=== PATIENT | male | born 1995 | race American Indian/Alaskan Native ===

== ENCOUNTER 2018-10-18 19:59 | Inpatient (IN) | payer OTHER ==
--- NOTE | 2018-10-18 20:46 | Event Note ---
ED Screening Note ED Screening Note: pt is complaining of muscle cramps abdominal cramping that began last night +nausea, +vomiting, +diarrhea no sick contacts no recent abx denies spoiled foods no PMHx no allergies to meds This initial assessment/diagnostic orders/clinical plan/treatment(s) is/are subject to change based on patients health status, clinical progression and re- assessment by fellow clinical providers in the ED. Further treatment and workup at subsequent clinical providers discretion. Patient/guardian urged not to elope from the ED as their condition may be serious if not clinically assessed and managed. Initial orders include: labs
[2018-10-18] MEDS ORDERED: ZOFRAN ODT PO ONE (20:49)
[2018-10-18] MEDS ORDERED: ZOFRAN ODT ONE (20:52)
[2018-10-18 21:17] LABS: Hematocrit 55.3 % (35.5-45.6); Hemoglobin 19.2 gm/dl (11.8-15.2); Mean Corpuscular HGB Conc 35 % (32-34); Mean Corpuscular Volume 97 fl (84-94); Platelet Count 300 K/mm3 (140-440); Red Cell Distribution Width 13.4 % (13.2-15.2)
[2018-10-18 21:32] LABS: Calcium 11.6 mg/dL (8.4-10.2)
[2018-10-18 22:15] LABS: Basophils % (Manual) 0 % (0.0-1.8); Eosinophils % (Manual) 0 % (0.0-4.3); RBC Morphology Normal; Total Cells Counted 100
[2018-10-18] MEDS ORDERED: MORPHINE IV ONE (22:51)
[2018-10-18] MEDS ORDERED: NACL 0.9% 1000 ML 1,000 ML IV ONE ×2 (22:51)
[2018-10-18] MEDS ORDERED: ATIVAN ONE (23:14)
[2018-10-18] MEDS ORDERED: ATIVAN IV ONE (23:14)
--- NOTE | 2018-10-19 00:22 | Cat Scan Report ---
. CT ABDOMEN AND PELVIS WITHOUT CONTRAST HISTORY: abdominal pain. Acute generalized abdominal pain COMPARISON: None. TECHNIQUE: CT images of the abdomen and pelvis were obtained without administration of intravenous co ntrast. All CT scans at this location are performed using CT dose reduction for ALARA by means of au tomated exposure control. FINDINGS: Lungs/bones: Lung bases are clear. There is no acute osseous abnormality. Abdomen/pelvis: The liver, gallbladder, spleen, pancreas, adrenals, kidneys, and proximal GI tract a ppear unremarkable. The urinary bladder and prostate appear unremarkable. No pelvic free fluid or acute colonic abnormali ty. The appendix is mildly prominent and there is a and appendicolith at the base of the appendix. No significant inflammatory stranding or free fluid. IMPRESSION: 1. Appendix findings as outlined above could represent early appendicitis. Signer Name: Garth Sharma MD Signed: 10/19/2018 12:17 AM Workstation Name: [id number]
[2018-10-19] MEDS ORDERED: NACL 0.9% 1000 ML 1,000 ML IV ONE ×2 (01:11→01:12)
--- NOTE | 2018-10-19 01:52 | Emergency Department Report ---
<JAMES RUGGIERO - Last Filed: 10/19/18 02:22> ED Abdominal Pain HPI - General Chief Complaint: Abdominal Pain Stated Complaint: POSS HERNIA Time Seen by Provider: 10/18/18 20:44 - Related Data Allergies Allergy/AdvReac Type Severity Reaction Status Date / Time No Known Allergies Allergy Unverified 10/18/18 20:32 ED Medical Decision Making - Lab Data Result diagrams: 10/18/18 20:56 10/18/18 20:56 - Medical Decision Making addendum by James Ruggiero M.D. Upon my evaluation of the patient at 2 AM he no longer complains of any abdominal discomfort on physical exam his abdomen is nice and soft and nontender to palpation patient states that his symptoms improved after IV fluids and 2 mg morphine. Chest there reviewed and I spoke with and the patient will be admitted to medical services for treatment of his rhabdomyolysis and acute renal injury and will be followed by surgery. It is felt that the CT is more consistent with an appendicolith and a not appendicitis ED Disposition Clinical Impression: Acute kidney injury, Acute renal failure due to rhabdomyolysis Abdominal pain Qualifiers: Abdominal location: lower abdomen, unspecified Qualified Code(s): R10.30 - L ower abdominal pain, unspecified Disposition: 09 OP ADMIT IP TO THIS HOSP Condition: Stable Referrals: BETTY MUNIZ MD [Primary Care Provider] - 3-5 Days Print Language: SPANISH <BENJAMIN HAQ - Last Filed: 10/19/18 02:34> ED Abdominal Pain HPI - General Source: patient Mode of arrival: Ambulatory Limitations: No Limitations - History of Present Illness Initial Comments: Patient is a 23-year-old [place] male with no past medical history who presents to the ED with complaint of acute onset persistent severe diffuse body aches and pains and some abdominal pain with nausea and vomiting for the last 12 hours but which got worse the last 6 hours. Patient states that he has not been able to eat anything or drink anything. The patient also complains of shortness of breath and mild dry cough. [place] rarely drinks water. Patient also states that he was spraying some chemicals 24 hours ago and suspects that that may have been what caused his pains and discomfort. Patient denies dizziness, chest pain, diarrhea, fever, chills, change in vision, syncope, hematuria, testicular pain, or headache. MD Complaint: abdominal pain, other (nausea and vomiting) -: Sudden, hour(s) (6 hours) Location: diffuse Radiation: none Migration to: no migration Severity: severe Severity scale (0 -10): 7 Quality: cramping, aching Consistency: constant Improves With: nothing Worsens With: vomiting Associated Symptoms: denies other symptoms, nausea, vomiting, chills, anorexia. denies: diarrhea, fever, constipation, dysuria, hematemesis, hematochezia, melena, hematuria, syncope ED Review of Systems ROS: Stated complaint: POSS HERNIA Other details as noted in HPI Constitutional: denies: chills, fever Eyes: denies: eye pain, eye discharge, vision change ENT: denies: ear pain, throat pain Respiratory: cough, shortness of breath. denies: SOB with exertion, SOB at rest, wheezing Cardiovascular: denies: chest pain, palpitations, dyspnea on exertion, edema, syncope Endocrine: no symptoms reported Gastrointestinal: abdominal pain, nausea, vomiting. denies: diarrhea, constipation, hematemesis, hematochezia Genitourinary: denies: urgency, dysuria Musculoskeletal: back pain, arthralgia, myalgia. denies: joint swelling Skin: denies: rash, lesions Neurological: weakness. denies: headache, paresthesias Psychiatric: anxiety. denies: depression Hematological/Lymphatic: denies: easy bleeding, easy bruising ED Past Medical Hx - Past Medical History Previous Medical History?: No - Surgical History Past Surgical History?: No - Social History Smoking Status: Current Every Day Smoker ED Physical Exam - General Limitations: No Limitations General appearance: alert, in no apparent distress - Head Head exam: Present: atraumatic, normocephalic, normal inspection - Eye Eye exam: Present: normal appearance, PERRL, EOMI. Absent: scleral icterus, conjunctival injection Pupils: Present: normal accommodation. Absent: unequal - ENT ENT exam: Present: normal exam, normal orophraynx, mucous membranes moist, TM's normal bilaterally, normal external ear exam - Neck Neck exam: Present: normal inspection, full ROM. Absent: tenderness, meningismus, lymphadenopathy, thyromegaly - Respiratory Respiratory exam: Present: normal lung sounds bilaterally. Absent: respiratory distress, wheezes, rales, chest wall tenderness, accessory muscle use, decreased breath sounds, prolonged expiratory - Cardiovascular Cardiovascular Exam: Present: normal rhythm, tachycardia, normal heart sounds. Absent: systolic murmur, diastolic murmur, rubs, gallop - GI/Abdominal GI/Abdominal exam: Present: soft, tenderness (severely diffuse tenderness, guarding on RLQ area), guarding, normal bowel sounds. Absent: rebound, hyperactive bowel sounds, hypoactive bowel sounds, organomegaly, bruit - Rectal Rectal exam: Present: deferred - Extremities Exam Extremities exam: Present: normal inspection, full ROM, normal capillary refill. Absent: tenderness, joint swelling, calf tenderness - Back Exam Back exam: Present: normal inspection, full ROM. Absent: tenderness, CVA tenderness (R), CVA tenderness (L), muscle spasm, paraspinal tenderness, vertebral tenderness - Neurological Exam Neurological exam: Present: alert, oriented X3, CN II-XII intact, normal gait, reflexes normal - Psychiatric Psychiatric exam: Present: normal affect, normal mood, anxious - Skin Skin exam: Present: warm, dry, intact, normal color. Absent: rash ED Course Vital Signs 10/18/18 20:51 Temperature 98.1 F Pulse Rate 122 H Respiratory 20 Rate Blood Pressure 156/74 O2 Sat by Pulse 99 Oximetry - Reevaluation(s) Reevaluation #1: 10/19/18 01:53 This is a 23-year-old -[place] male with no past medical history presented to the ED with diffuse abdominal pain, nausea, vomiting, diffuse body aches and pains and subjective shortness of breath. In the ED, patient is alert and oriented 3, anxious, cachectic and tachycardic and appears ill. Labs were drawn, and patient was immediately started on normal saline IV fluids. Lab test results were reviewed and showed leukocytosis of 11,300, the urine over 36, creatinine of 4.9, hyperglycemia 153 mg/dL, AST of 90 and ALT of 86, , CK of 3417 and protein of 11.4 and albumin of 6.0. These findings were discussed with the ED attending physician Dr. Ruggiero who agreed with the plan of care and suggested the patient may be having acute rhabdomyolysis. Abdomen pelvis CT scan without contrast was ordered and showed the liver, gallbladder, spleen, pancreas, adrenals, kidneys, and proximal GI tract which appeared unremarkable. The urinary bladder and prostate appear unremarkable. No pelvic free fluid or acute colonic abnormality. The appendix is mildly prominent and there is a and appendicolith at the base of the appendix. No significant inflammatory stranding or free fluid. These findings as outlined could represent early appendicitis. I discussed these findings with the ED attending physician Dr. Ruggiero who advised that they general surgeon medication tech has been paged and the patient also be discussed with the hospitalist physician to admit the patient. I paged Dr. Fernandez, the General Surgeon medication tech who asked to talk to the ED attending Physician, Dr. Ruggiero about the Patient. Dr Ruggiero discussed the patient's findings with the General Surgeon medication tech Dr. Fernandez who agreed to consult on the patient upon admission. Dr. Ruggiero also discussed the patient's case with the Hospitalist physician medication tech Dr. Pinto who admitted the patient to the hospital 10/19/18 02:29 ED Medical Decision Making - Lab Data Result diagrams: 10/18/18 20:56 10/18/18 20:56 - Radiology Data Radiology results: report reviewed, image reviewed interpreted by me: [place] [address] Cat Scan Report Signed Patient: PRISCILA SOTELO MR#: [id number] : 1995 Acct:[id number] Age/Sex: 23 / M ADM Date: 10/18/18 Loc: ED Attending Dr: Ordering Physician: BRIDGETTE ENCARNACION Date of Service: 10/18/18 Procedure(s): CT abdomen pelvis wo con Accession Number(s): [id number] cc: BRIDGETTE ENCARNACION . CT ABDOMEN AND PELVIS WITHOUT CONTRAST HISTORY: abdominal pain. Acute generalized abdominal pain COMPARISON: None. TECHNIQUE: CT images of the abdomen and pelvis were obtained without administration of intravenous contrast. All CT scans at this location are performed using CT dose reduction for ALARA by means of automated exposure control. FINDINGS: Lungs/bones: Lung bases are clear. There is no acute osseous abnormality. Abdomen/pelvis: The liver, gallbladder, spleen, pancreas, adrenals, kidneys, and proximal GI tract appear unremarkable. The urinary bladder and prostate appear unremarkable. No pelvic free fluid or acute colonic abnormality. The appendix is mildly prominent and there is a and appendicolith at the base of the appendix. No significant inflammatory stranding or free fluid. IMPRESSION: 1. Appendix findings as outlined above could represent early appendicitis. Signer Name: Garth Sharma MD Signed: 10/19/2018 12:17 AM Workstation Name: [id number] Transcribed By: JAMILA Dictated By: Garth Sharma MD Electronically Authenticated By: Garth Sharma MD Signed Date/Time: 10/19/18 0017 - Medical Decision Making This is a 23-year-old -[place] male with no past medical history presented to the ED with diffuse abdominal pain, nausea, vomiting, diffuse body aches and pains and subjective shortness of breath. In the ED, patient is alert and oriented 3, anxious, cachectic and tachycardic and appears ill. Labs were drawn, and patient was immediately started on normal saline IV fluids. Lab test results were reviewed and showed leukocytosis of 11,300, the urine over 36, creatinine of 4.9, hyperglycemia 153 mg/dL, AST of 90 and ALT of 86, , CK of 3417 and protein of 11.4 and albumin of 6.0. These findings were discussed with the ED attending physician Dr. Ruggiero who agreed with the plan of care and suggested the patient may be having acute rhabdomyolysis. Abdomen pelvis CT scan without contrast was ordered and showed the liver, gallbladder, spleen, pa ncreas, adrenals, kidneys, and proximal GI tract which appeared unremarkable. The urinary bladder and prostate appear unremarkable. No pelvic free fluid or acute colonic abnormality. The appendix is mildly prominent and there is a and appendicolith at the base of the appendix. No significant inflammatory stranding or free fluid. These findings as outlined could represent early appendicitis. I discussed these findings with the ED attending physician Dr. Ruggiero who advised that they general surgeon medication tech has been paged and the patient also be discussed with the hospitalist physician to admit the patient. I paged Dr. Fernandez, the General Surgeon medication tech who asked to talk to the ED attending Physician, Dr. Ruggiero about the Patient. Dr Ruggiero discussed the patient's findings with the General Surgeon medication tech Dr. Fernandez who agreed to consult on the patient upon admission. Dr. Ruggiero also discussed the patient's case with the Hospitalist physician medication tech Dr. Pinto who admitted the patient to the hospital - Differential Diagnosis abdominal pain; rhabdomyolysis; acute renal injury Critical Care Time: Yes Critical care time in (mins) excluding proc time.: 45 Critical care attestation.: If time is entered above; I have spent that time in minutes in the direct care of this critically ill patient, excluding procedure time. ED Disposition Is pt being admited?: Yes Does the pt Need Aspirin: No Time of Disposition: 02:34
--- NOTE | 2018-10-19 02:17 | XRay Report ---
CHEST 2 VIEWS INDICATION: dyspnea. COMPARISON: None FINDINGS: Support devices: None. Heart: Within normal limits. Lungs/pleura: No acute air space or interstitial disease. No pneumothorax. Additional findings: None. IMPRESSION: 1. No acute findings. Signer Name: Garth Sharma MD Signed: 10/19/2018 2:12 AM Workstation Name: [id number]
[2018-10-19 02:21] LABS: Bilirubin,Urine NEG (Negative); Blood,Urine MOD (Negative); Color,Urine Yellow (Yellow); Mucus,Urine 2+ /HPF; Urobilinogen,Urine < 2.0 mg/dL (<2.0)
[2018-10-19] MEDS ORDERED: TYLENOL PO PRN (04:06)
[2018-10-19] MEDS ORDERED: MORPHINE IV PRN (04:06)
[2018-10-19] MEDS ORDERED: SODIUM CHLORIDE FLUSH SYRINGE 10 ML IV PRN (04:06)
[2018-10-19] MEDS ORDERED: PERCOCET 5/325 PO PRN (04:06)
[2018-10-19] MEDS ORDERED: ZOFRAN IV PRN (04:06)
--- NOTE | 2018-10-19 04:06 | History and Physical Report ---
History of Present Illness Chief complaint: abdominal pain History of present illness: A 23-year-old man with a significant past medical history who has been training and exercising heavily in the heat outside. He's been doing a regimen with her friend. He presents abdominal pain for 1 day. Patient also complains of muscle spasms and muscle cramps and feeling hot and weak all over. Constitutional; no chills, no night sweats, no weight loss, no weight gain, no sweats, no anorexia, no fatigue, no weakness, no malaise, no lethargy Eyes: bilateral: other (no complaint of visual problems.) Ears, nose, mouth and throat: mouth pain, no ear pain, no ear discharge, no decreased hearing, no nose pain, no nasal congestion, no bleeding gums, no dental pain, no dysphagia, no hoarseness, no sore throat Cardiovascular: no orthopnea, no palpitations, no rapid/irregular heart beat, no phlebitis Respiratory: no cough with sputum, no excessive sputum, no hemoptysis, no wheezing, no pleurisy, no pain Gastrointestinal: Admits to abdominal pain, no nausea, no vomiting, no diarrhea, no hematochezia, no loss of appetite Rectal: no pain, no incontinence, no bleeding Musculoskeletal: no neck stiffness, no neck pain, no shooting arm pain, no arm numbness/tingling, no low back pain, no shooting leg pain, no leg numbness/tingling Integumentary: no pruritis, no redness, no sores Neurological: no transient paralysis, no paralysis, no weakness Psychiatric: no memory loss, no change in sleep habits, no disorientation Endocrine: no heat intolerance, no polyphagia Hematologic/Lymphatic: no easy bruising, no easy bleeding Allergic/Immunologic: no allergic rhinitis Past History Past Medical History: No medical history Past Surgical History: No surgical history Social history: no significant social history Family history: no significant family history Medications and Allergies Allergies Allergy/AdvReac Type Severity Reaction Status Date / Time No Known Allergies Allergy Unverified 10/18/18 20:32 Exam - Constitutional Vitals: Temp Pulse Resp BP Pulse Ox 98.1 F 122 H 20 156/74 99 10/18/18 20:51 10/18/18 20:51 10/18/18 20:51 10/18/18 20:51 10/18/18 20:51 General appearance: Present: no acute distress, well-nourished - EENT Eyes: Present: PERRL ENT: hearing intact, clear oral mucosa - Neck Neck: Present: supple, normal ROM - Respiratory Respiratory effort: normal Respiratory: bilateral: CTA - Cardiovascular Heart Sounds: Present: S1 & S2. Absent: rub, click - Extremities Extremities: pulses symmetrical, No edema Peripheral Pulses: within normal limits - Abdominal General gastrointestinal: Present: soft, non-tender, non-distended, normal bowel sounds Male genitourinary: Present: normal - Integumentary Integumentary: Present: clear, warm, dry - Musculoskeletal Musculoskeletal: strength equal bilaterally, other (tenderness to abdominal wall) - Psychiatric Psychiatric: appropriate mood/affect, intact judgment & insight - Neurologic Neurologic: CNII-XII intact, moves all extremities Results - Labs CBC & Chem 7: 10/18/18 20:56 10/18/18 20:56 Labs: Laboratory Last Values WBC 11.3 K/mm3 (4.5-11.0) H 10/18/18 20:56 RBC 5.70 M/mm3 (3.65-5.03) H 10/18/18 20:56 Hgb 19.2 gm/dl (11.8-15.2) H 10/18/18 20:56 Hct 55.3 % (35.5-45.6) H 10/18/18 20:56 MCV 97 fl (84-94) H 10/18/18 20:56 MCH 34 pg (28-32) H 10/18/18 20:56 MCHC 35 % (32-34) H 10/18/18 20:56 RDW 13.4 % (13.2-15.2) 10/18/18 20:56 Plt Count 300 K/mm3 (140-440) 10/18/18 20:56 Add Manual Diff Complete 10/18/18 20:56 Total Counted 100 10/18/18 20:56 Seg Neuts % (Manual) 84.0 % (40.0-70.0) H 10/18/18 20:56 0 % 10/18/18 20:56 9.0 % (13.4-35.0) L 10/18/18 20:56 Reactive Lymphs % (Man) 0 % 10/18/18 20:56 7.0 % (0.0-7.3) 10/18/18 20:56 0 % (0.0-4.3) 10/18/18 20:56 0 % (0.0-1.8) 10/18/18 20:56 0 % 10/18/18 20:56 0 % 10/18/18 20:56 0 % 10/18/18 20:56 0 % 10/18/18 20:56 Nucleated RBC % Not Reportable 10/18/18 20:56 Seg Neutrophils # Man 9.5 K/mm3 (1.8-7.7) H 10/18/18 20:56 Band Neutrophils # 0.0 K/mm3 10/18/18 20:56 1.0 K/mm3 (1.2-5.4) L 10/18/18 20:56 Abs React Lymphs (Man) 0.0 K/mm3 10/18/18 20:56 0.8 K/mm3 (0.0-0.8) 10/18/18 20:56 0.0 K/mm3 (0.0-0.4) 10/18/18 20:56 0.0 K/mm3 (0.0-0.1) 10/18/18 20:56 0.0 K/mm3 10/18/18 20:56 0.0 K/mm3 10/18/18 20:56 0.0 K/mm3 10/18/18 20:56 Blast Cells # 0.0 K/mm3 10/18/18 20:56 WBC Morphology Not Reportable 10/18/18 20:56 Hypersegmented Neuts Not Reportable 10/18/18 20:56 Hyposegmented Neuts Not Reportable 10/18/18 20:56 Hypogranular Neuts Not Reportable 10/18/18 20:56 Not Reportable 10/18/18 20:56 Not Reportable 10/18/18 20:56 Not Reportable 10/18/18 20:56 Not Reportable 10/18/18 20:56 Not Reportable 10/18/18 20:56 Not Reportable 10/18/18 20:56 Not Reportable 10/18/18 20:56 Not Reportable 10/18/18 20:56 Plt Clumps, EDTA Not Reportable 10/18/18 20:56 Not Reportable 10/18/18 20:56 Not Reportable 10/18/18 20:56 Not Reportable 10/18/18 20:56 Plt Morphology Comment Not Reportable 10/18/18 20:56 RBC Morphology Normal 10/18/18 20:56 Dimorphic RBCs Not Reportable 10/18/18 20:56 Not Reportable 10/18/18 20:56 Not Reportable 10/18/18 20:56 Not Reportable 10/18/18 20:56 Not Reportable 10/18/18 20:56 Not Reportable 10/18/18 20:56 Not Reportable 10/18/18 20:56 Not Reportable 10/18/18 20:56 Not Reportable 10/18/18 20:56 Not Reportable 10/18/18 20:56 Not Reportable 10/18/18 20:56 Not Reportable 10/18/18 20:56 Not Reportable 10/18/18 20:56 Not Reportable 10/18/18 20:56 Not Reportable 10/18/18 20:56 Not Reportable 10/18/18 20:56 Not Reportable 10/18/18 20:56 Not Reportable 10/18/18 20:56 Not Reportable 10/18/18 20:56 Not Reportable 10/18/18 20:56 Acanthocytes (Spur) Not Reportable 10/18/18 20:56 Rouleaux Not Reportable 10/18/18 20:56 Not Reportable 10/18/18 20:56 Not Reportable 10/18/18 20:56 Not Reportable 10/18/18 20:56 Not Reportable 10/18/18 20:56 Hem Pathologist Commnt No 10/18/18 20:56 Sodium 137 mmol/L (137-145) 10/18/18 20:56 Potassium 4.1 mmol/L (3.6-5.0) 10/18/18 20:56 Chloride 88.2 mmol/L (98-107) L 10/18/18 20:56 Carbon Dioxide 17 mmol/L (22-30) L 10/18/18 20:56 36 mmol/L 10/18/18 20:56 BUN 36 mg/dL (9-20) H 10/18/18 20:56 4.9 mg/dL (0.8-1.5) H 10/18/18 20:56 Estimated GFR 15 ml/min 10/18/18 20:56 7 % 10/18/18 20:56 Glucose 153 mg/dL (75-100) H 10/18/18 20:56 Calcium 11.6 mg/dL (8.4-10.2) H 10/18/18 20:56 0.70 mg/dL (0.1-1.2) 10/18/18 20:56 AST 90 units/L (5-40) H 10/18/18 20:56 ALT 86 units/L (7-56) H 10/18/18 20:56 75 units/L (35-129) 10/18/18 20:56 3417 units/L (55-170) H 10/18/18 20:56 < 0.010 ng/mL (0.00-0.029) 10/18/18 23:04 11.4 g/dL (6.3-8.2) H 10/18/18 20:56 6.0 g/dL (3.9-5) H 10/18/18 20:56 1.1 % 10/18/18 20:56 43 units/L (13-60) 10/18/18 20:56 Yellow (Yellow) 10/19/18 01:58 Cloudy (Clear) 10/19/18 01:58 5.0 (5.0-7.0) 10/19/18 01:58 Ur Specific [place] 1.017 (1.003-1.030) 10/19/18 01:58 30 mg/dl mg/dL (Negative) 10/19/18 01:58 Neg mg/dL (Negative) 10/19/18 01:58 20 mg/dL (Negative) 10/19/18 01:58 Mod (Negative) 10/19/18 01:58 Neg (Negative) 10/19/18 01:58 Neg (Negative) 10/19/18 01:58 < 2.0 mg/dL (<2.0) 10/19/18 01:58 Ur Leukocyte Esterase Neg (Negative) 10/19/18 01:58 10.0 /HPF (0.0-6.0) H 10/19/18 01:58 8.0 /HPF (0.0-6.0) 10/19/18 01:58 U Epithel Cells (Auto) 1.0 /HPF (0-13.0) 10/19/18 01:58 2+ /HPF 10/19/18 01:58 - Imaging and Cardiology Chest x-ray: image reviewed (no acute findings) CT scan - abdomen: image reviewed (appendicolith, may be early appendicitis) Assessment and Plan Assessment and plan: 23-year-old man who presents to the hospital after exercising strenuously with rhabdomyolysis and acute kidney injury Rhabdomyolysis IV fluids, hydration, keep patient cool, check UDS Acute kidney injury due to vasomotor nephropathy and muscle breakdown products Continue IV fluids, nephrology consult Polycythemia May be falsely elevated due to dehydration, we'll rehydrate the patient and recheck hg Metabolic acidosis Most likely to acute kidney injury , IVF Abnormal UA -Most likely epithelial cells, highly doubt UTI, follow-up urine culture Preventative health counseling performed for 17 minutes DVT prophylaxis; early ambulation
[2018-10-19] MEDS: NACL 0.45% 1000 ML 1,000 ML IV SCH ×3 (06:39→19:11)
--- NOTE | 2018-10-19 10:08 | Consultation ---
History of Present Illness - Reason for Consult Consult date: 10/19/18 acute renal failure Requesting physician: JESUS SAMUELS - History of Present Illness This is 23yo AAM with no significant past medical history, who presented to [facility] ER yesterday with complaints of abdominal pain, muscle spasms and generalized weakness. pt states that he has been training and exercising heavily in the heat outside. In ER labs showed significantly elevated BUN/Cr at 36/4.9mg/dl along with elevated CPK > 3400, Hb >19, total protein 11.4, Ca > 11. Pt was admitted for IVF treatment for TANJA and severe dehydration. Renal consult requested for management of TANJA. Pt denies previous renal disease, no recent chronic NSAIDs use or IV contrast exposure reported. Past History Past Medical History: No medical history Past Surgical History: No surgical history Social history: no significant social history Family history: no significant family history Medications and Allergies Allergies Allergy/AdvReac Type Severity Reaction Status Date / Time No Known Allergies Allergy Unverified 10/18/18 20:32 Active Meds: Active Medications Acetaminophen (Tylenol) 650 mg PO Q4H PRN PRN Reason: Pain MILD(1-3)/Fever >100.5/LIU Sodium Chloride (Nacl 0.45% 1000 Ml) 1,000 mls @ 250 mls/hr IV DIRECT FÁTIMA Last Admin: 10/19/18 06:39 Dose: 250 mls/hr Documented by: Morphine Sulfate (Morphine) 2 mg IV Q4H PRN PRN Reason: Pain, Moderate (4-6) Ondansetron HCl (Zofran) 4 mg IV Q8H PRN PRN Reason: Nausea And Vomiting Oxycodone/Acetaminophen (Percocet 5/325) 1 tab PO Q6H PRN PRN Reason: Pain, Moderate (4-6) Sodium Chloride (Sodium Chloride Flush Syringe 10 Ml) 10 ml IV BID FÁTIMA Sodium Chloride (Sodium Chloride Flush Syringe 10 Ml) 10 ml IV PRN PRN PRN Reason: LINE FLUSH Review of Systems All systems: negative Constitutional: fatigue, weakness, malaise, poor appetite Exam - Vital Signs Vital signs: Vital Signs Temp Pulse Resp BP Pulse Ox 98.1 F 122 H 20 156/74 99 10/18/18 20:51 10/18/18 20:51 10/18/18 20:51 10/18/18 20:51 10/18/18 20:51 - General Appearance General appearance: well-developed, well-nourished, appears stated age EENT: ATNC, PERRL, mucous membranes moist Neck: Present: neck supple Respiratory: Clear to Ascultation Heart: regular, S1S2 Gastrointestinal: Present: normoactive bowel sounds Integumentary: no rash, other (no edema ) Neurologic: no focal deficit, alert and oriented x3, strength 5/5, CN 3-12 intact Psychiatric: mood/affect appropriate, cooperative Results - Lab Results 10/18/18 20:56 10/18/18 20:56 Most recent lab results Calcium 11.6 mg/dL (8.4-10.2) H 10/18/18 20:56 Assessment and Plan - Patient Problems (1) Acute kidney injury Current Visit: Yes Status: Acute Plan to address problem: most likely pre-renal azotemia in the setting of severe dehydration. Mild Rhabdomyolysis may contribute to TANJA. check urine lytes, urine protein/cr ratio. cont aggressive IVF with NS at 250ml/hr. avoid nephrotoxins, NSAIDs, IV contrast. Will monitor lytes/renal parameters closely and make further recommendations. no acute indication for renal replacement therapy (2) Rhabdomyolysis Current Visit: Yes Status: Acute Plan to address problem: mild rhabdo, expect to improve with IV NS (3) Hypercalcemia Current Visit: Yes Status: Acute Plan to address problem: likely secondary to severe dehydration. Alb corrected Ca 10. check PTH. cont IV NS
--- NOTE | 2018-10-19 11:53 | Progress Note ---
Assessment and Plan Assessment and plan: --Acute appendicitis; on CT IV fluids, nothing by mouth status, surgery consult IV antibiotics and supportive care --Acute kidney injury; vasomotor nephropathy IV fluids, closely monitor renal function, avoid nephrotoxins Nephrology consulted, and renal ultrasound --Rhabdomyolysis; probably secondary to strenuous physical activity IV fluids, monitor renal function , urine toxicology --Transaminitis; no history of liver disease Monitor closely, GI consult if needed, hepatitis panel --Possible UTI; on UA Empiric antibiotics, follow cultures, plenty of fluids --Ongoing tobacco use; smoking cessation counseling Nicotine patch as needed --DVT prophylaxis; SCD Lovenox after evaluation by surgery Monitor closely and adjust the management as needed History Interval history: Patient seen and examined medical records reviewed Admitted with abdominal pain CT scan possible appendicitis Surgery has evaluated ruled out appendicitis Patient complains of generalized body pains and weakness Vital signs reviewed Hospitalist Physical - Constitutional Vitals: Temp Pulse Resp BP Pulse Ox 98.4 F 74 18 121/59 99 10/19/18 06:16 10/19/18 06:16 10/19/18 06:16 10/19/18 06:16 10/19/18 06:16 General appearance: Present: no acute distress, well-nourished - EENT Eyes: Present: PERRL, EOM intact - Neck Neck: Present: supple, normal ROM - Respiratory Respiratory effort: normal Respiratory: bilateral: diminished, negative: rales, rhonchi, wheezing - Cardiovascular Rhythm: regular Heart Sounds: Present: S1 & S2 - Extremities Extremities: no ischemia, No edema - Abdominal General gastrointestinal: soft, non-tender, non-distended, distended - Integumentary Integumentary: Present: clear, warm - Psychiatric Psychiatric: appropriate mood/affect, cooperative - Neurologic Neurologic: CNII-XII intact, moves all extremities Results - Labs CBC & Chem 7: 10/18/18 20:56 10/19/18 12:02 Labs: Laboratory Last Values WBC 11.3 K/mm3 (4.5-11.0) H 10/18/18 20:56 RBC 5.70 M/mm3 (3.65-5.03) H 10/18/18 20:56 Hgb 19.2 gm/dl (11.8-15.2) H 10/18/18 20:56 Hct 55.3 % (35.5-45.6) H 10/18/18 20:56 MCV 97 fl (84-94) H 10/18/18 20:56 MCH 34 pg (28-32) H 10/18/18 20:56 MCHC 35 % (32-34) H 10/18/18 20:56 RDW 13.4 % (13.2-15.2) 10/18/18 20:56 Plt Count 300 K/mm3 (140-440) 10/18/18 20:56 Add Manual Diff Complete 10/18/18 20:56 Total Counted 100 10/18/18 20:56 Seg Neuts % (Manual) 84.0 % (40.0-70.0) H 10/18/18 20:56 0 % 10/18/18 20:56 9.0 % (13.4-35.0) L 10/18/18 20:56 Reactive Lymphs % (Man) 0 % 10/18/18 20:56 7.0 % (0.0-7.3) 10/18/18 20:56 0 % (0.0-4.3) 10/18/18 20:56 0 % (0.0-1.8) 10/18/18 20:56 0 % 10/18/18 20:56 0 % 10/18/18 20:56 0 % 10/18/18 20:56 0 % 10/18/18 20:56 Nucleated RBC % Not Reportable 10/18/18 20:56 Seg Neutrophils # Man 9.5 K/mm3 (1.8-7.7) H 10/18/18 20:56 Band Neutrophils # 0.0 K/mm3 10/18/18 20:56 1.0 K/mm3 (1.2-5.4) L 10/18/18 20:56 Abs React Lymphs (Man) 0.0 K/mm3 10/18/18 20:56 0.8 K/mm3 (0.0-0.8) 10/18/18 20:56 0.0 K/mm3 (0.0-0.4) 10/18/18 20:56 0.0 K/mm3 (0.0-0.1) 10/18/18 20:56 0.0 K/mm3 10/18/18 20:56 0.0 K/mm3 10/18/18 20:56 0.0 K/mm3 10/18/18 20:56 Blast Cells # 0.0 K/mm3 10/18/18 20:56 WBC Morphology Not Reportable 10/18/18 20:56 Hypersegmented Neuts Not Reportable 10/18/18 20:56 Hyposegmented Neuts Not Reportable 10/18/18 20:56 Hypogranular Neuts Not Reportable 10/18/18 20:56 Not Reportable 10/18/18 20:56 Not Reportable 10/18/18 20:56 Not Reportable 10/18/18 20:56 Not Reportable 10/18/18 20:56 Not Reportable 10/18/18 20:56 Not Reportable 10/18/18 20:56 Not Reportable 10/18/18 20:56 Not Reportable 10/18/18 20:56 Plt Clumps, EDTA Not Reportable 10/18/18 20:56 Not Reportable 10/18/18 20:56 Not Reportable 10/18/18 20:56 Not Reportable 10/18/18 20:56 Plt Morphology Comment Not Reportable 10/18/18 20:56 RBC Morphology Normal 10/18/18 20:56 Dimorphic RBCs Not Reportable 10/18/18 20:56 Not Reportable 10/18/18 20:56 Not Reportable 10/18/18 20:56 Not Reportable 10/18/18 20:56 Not Reportable 10/18/18 20:56 Not Reportable 10/18/18 20:56 Not Reportable 10/18/18 20:56 Not Reportable 10/18/18 20:56 Not Reportable 10/18/18 20:56 Not Reportable 10/18/18 20:56 Not Reportable 10/18/18 20:56 Not Reportable 10/18/18 20:56 Not Reportable 10/18/18 20:56 Not Reportable 10/18/18 20:56 Not Reportable 10/18/18 20:56 Not Reportable 10/18/18 20:56 Not Reportable 10/18/18 20:56 Not Reportable 10/18/18 20:56 Not Reportable 10/18/18 20:56 Not Reportable 10/18/18 20:56 Acanthocytes (Spur) Not Reportable 10/18/18 20:56 Rouleaux Not Reportable 10/18/18 20:56 Not Reportable 10/18/18 20:56 Not Reportable 10/18/18 20:56 Not Reportable 10/18/18 20:56 Not Reportable 10/18/18 20:56 Hem Pathologist Commnt No 10/18/18 20:56 Sodium 137 mmol/L (137-145) 10/18/18 20:56 Potassium 4.1 mmol/L (3.6-5.0) 10/18/18 20:56 Chloride 88.2 mmol/L (98-107) L 10/18/18 20:56 Carbon Dioxide 17 mmol/L (22-30) L 10/18/18 20:56 36 mmol/L 10/18/18 20:56 BUN 36 mg/dL (9-20) H 10/18/18 20:56 4.9 mg/dL (0.8-1.5) H 10/18/18 20:56 Estimated GFR 15 ml/min 10/18/18 20:56 7 % 10/18/18 20:56 Glucose 153 mg/dL (75-100) H 10/18/18 20:56 Calcium 11.6 mg/dL (8.4-10.2) H 10/18/18 20:56 0.70 mg/dL (0.1-1.2) 10/18/18 20:56 AST 90 units/L (5-40) H 10/18/18 20:56 ALT 86 units/L (7-56) H 10/18/18 20:56 75 units/L (35-129) 10/18/18 20:56 3417 units/L (55-170) H 10/18/18 20:56 < 0.010 ng/mL (0.00-0.029) 10/18/18 23:04 11.4 g/dL (6.3-8.2) H 10/18/18 20:56 6.0 g/dL (3.9-5) H 10/18/18 20:56 1.1 % 10/18/18 20:56 43 units/L (13-60) 10/18/18 20:56 PTH Intact 50.19 pg/mL (15-65) 10/19/18 09:49 Yellow (Yellow) 10/19/18 01:58 Cloudy (Clear) 10/19/18 01:58 5.0 (5.0-7.0) 10/19/18 01:58 Ur Specific [place] 1.017 (1.003-1.030) 10/19/18 01:58 30 mg/dl mg/dL (Negative) 10/19/18 01:58 Neg mg/dL (Negative) 10/19/18 01:58 20 mg/dL (Negative) 10/19/18 01:58 Mod (Negative) 10/19/18 01:58 Neg (Negative) 10/19/18 01:58 Neg (Negative) 10/19/18 01:58 < 2.0 mg/dL (<2.0) 10/19/18 01:58 Ur Leukocyte Esterase Neg (Negative) 10/19/18 01:58 10.0 /HPF (0.0-6.0) H 10/19/18 01:58 8.0 /HPF (0.0-6.0) 10/19/18 01:58 U Epithel Cells (Auto) 1.0 /HPF (0-13.0) 10/19/18 01:58 2+ /HPF 10/19/18 01:58 Active Medications - Current Medications Current Medications: Generic Name Dose Route Start Last Admin Trade Name Freq PRN Reason Stop Dose Admin Acetaminophen 650 mg 10/19/18 04:06 Tylenol PO Q4H PRN Pain MILD(1-3)/Fever >100.5/LIU Sodium Chloride 1,000 mls @ 250 mls/hr 10/19/18 05:00 10/19/18 06:39 Nacl 0.45% 1000 Ml IV 250 mls/hr DIRECT FÁTIMA Administration Piperacillin Sod/Tazobactam Sod 2.25 gm in 50 mls @ 100 mls/hr 10/19/18 14:00 Zosyn/Ns 2.25 Gm/50ml IV Q8HR FÁTIMA Protocol Morphine Sulfate 2 mg 10/19/18 04:06 Morphine IV Q4H PRN Pain, Moderate (4-6) Ondansetron HCl 4 mg 10/19/18 04:06 Zofran IV Q8H PRN Nausea And Vomiting Oxycodone/Acetaminophen 1 tab 10/19/18 04:06 Percocet 5/325 PO Q6H PRN Pain, Moderate (4-6) Sodium Chloride 10 ml 10/19/18 10:00 Sodium Chloride Flush Syringe 10 Ml IV BID FÁTIMA Sodium Chloride 10 ml 10/19/18 04:06 Sodium Chloride Flush Syringe 10 Ml IV PRN PRN LINE FLUSH
[2018-10-19 12:38] LABS: Alanine Aminotransferase 41 units/L (7-56); Albumin 3.7 g/dL (3.9-5); BUN/Creatinine Ratio 14; Blood Urea Nitrogen 17 mg/dL (9-20); Calcium 8.3 mg/dL (8.4-10.2); Hemolysis Index 5
--- NOTE | 2018-10-19 12:57 | Progress Note ---
Assessment and Plan Full consult dictated: healthy 23 y/o male admitted secondary to abd muscle spasms and pain. r/o appendicitiis. feeling much better now. labs and hx consistent with rhabdomyolosis. Abd - muscular abd wall but non tender at present. neg guarding or rebound. reviewed CT with radiologist. appendicolith noted but not signs of inflammatory changes. neg for appendicitis. pt also tacho diet without compl surgically stable will follow prn abdominal pain History of present illness: A 23-year-old man with a significant past medical history who has been training and exercising heavily in the heat outside. He's been doing a regimen with her friend. He presents abdominal pain for 1 day. Patient also complains of muscle spasms and muscle cramps and feeling hot and weak all over. Constitutional; no chills, no night sweats, no weight loss, no weight gain, no sweats, no anorexia, no fatigue, no weakness, no malaise, no lethargy Eyes: bilateral: other (no complaint of visual problems.) Ears, nose, mouth and throat: mouth pain, no ear pain, no ear discharge, no decreased hearing, no nose pain, no nasal congestion, no bleeding gums, no dental pain, no dysphagia, no hoarseness, no sore throat Cardiovascular: no orthopnea, no palpitations, no rapid/irregular heart beat, no phlebitis Respiratory: no cough with sputum, no excessive sputum, no hemoptysis, no w heezing, no pleurisy, no pain Gastrointestinal: Admits to abdominal pain, no nausea, no vomiting, no diarrhea, no hematochezia, no loss of appetite Rectal: no pain, no incontinence, no bleeding Musculoskeletal: no neck stiffness, no neck pain, no shooting arm pain, no arm numbness/tingling, no low back pain, no shooting leg pain, no leg numbness/tingling Integumentary: no pruritis, no redness, no sores Neurological: no transient paralysis, no paralysis, no weakness Psychiatric: no memory loss, no change in sleep habits, no disorientation Endocrine: no heat intolerance, no polyphagia Hematologic/Lymphatic: no easy bruising, no easy bleeding Allergic/Immunologic: no allergic rhinitis Past History Past Medical History: No medical history Past Surgical History: No surgical history Social history: no significant social history Family history: no significant family history Selected Entries 10/19/18 11:52 Temperature 98.1 F Pulse Rate 76 Respiratory 16 Rate Blood Pressure 108/55 Laboratory Tests 10/18/18 10/18/18 10/19/18 20:56 20:56 12:02 WBC 11.3 H Hgb 19.2 H Hct 55.3 H BUN 36 H 17 Creatinine 4.9 H 1.2 D Total Creatine Kinase 4703 H Objective Vital Signs - 12hr 10/19/18 10/19/18 10/19/18 04:25 06:16 11:52 Temperature 98.3 F 98.4 F 98.1 F Pulse Rate 90 74 76 Respiratory 16 18 16 Rate Blood Pressure 121/59 108/55 Blood Pressure 110/64 [Right] O2 Sat by Pulse 99 99 98 Oximetry - Labs 10/18/18 20:56 10/19/18 12:02 Diabetes panel 10/18/18 10/19/18 Range/Units 20:56 12:02 Sodium 137 140 (137-145) mmol/L Potassium 4.1 3.8 (3.6-5.0) mmol/L Chloride 88.2 L 105.8 (98-107) mmol/L Carbon Dioxide 17 L 24 D (22-30) mmol/L BUN 36 H 17 (9-20) mg/dL Creatinine 4.9 H 1.2 D (0.8-1.5) mg/dL Glucose 153 H 92 (75-100) mg/dL Calcium 11.6 H 8.3 L D (8.4-10.2) mg/dL AST 90 H 77 H (5-40) units/L ALT 86 H 41 (7-56) units/L Alkaline Phosphatase 75 42 (35-129) units/L Total Protein 11.4 H 6.7 D (6.3-8.2) g/dL Albumin 6.0 H 3.7 L (3.9-5) g/dL Calcium panel 10/18/18 10/19/18 Range/Units 20:56 12:02 Calcium 11.6 H 8.3 L D (8.4-10.2) mg/dL Albumin 6.0 H 3.7 L (3.9-5) g/dL Pituitary panel 10/18/18 10/19/18 Range/Units 20:56 12:02 Sodium 137 140 (137-145) mmol/L Potassium 4.1 3.8 (3.6-5.0) mmol/L Chloride 88.2 L 105.8 (98-107) mmol/L Carbon Dioxide 17 L 24 D (22-30) mmol/L BUN 36 H 17 (9-20) mg/dL Creatinine 4.9 H 1.2 D (0.8-1.5) mg/dL Glucose 153 H 92 (75-100) mg/dL Calcium 11.6 H 8.3 L D (8.4-10.2) mg/dL Adrenal panel 10/18/18 10/19/18 Range/Units 20:56 12:02 Sodium 137 140 (137-145) mmol/L Potassium 4.1 3.8 (3.6-5.0) mmol/L Chloride 88.2 L 105.8 (98-107) mmol/L Carbon Dioxide 17 L 24 D (22-30) mmol/L BUN 36 H 17 (9-20) mg/dL Creatinine 4.9 H 1.2 D (0.8-1.5) mg/dL Glucose 153 H 92 (75-100) mg/dL Calcium 11.6 H 8.3 L D (8.4-10.2) mg/dL Total Bilirubin 0.70 0.60 (0.1-1.2) mg/dL AST 90 H 77 H (5-40) units/L ALT 86 H 41 (7-56) units/L Alkaline Phosphatase 75 42 (35-129) units/L Total Protein 11.4 H 6.7 D (6.3-8.2) g/dL Albumin 6.0 H 3.7 L (3.9-5) g/dL
[2018-10-19] MEDS: ZOSYN/NS 2.25 GM/50ML 2.25 GM/50 ML BAG IV SCH ×2 (14:51→21:30)
[2018-10-19] MEDS: SODIUM CHLORIDE FLUSH SYRINGE 10 ML IV SCH ×2 (14:52→21:30)
[2018-10-20] MEDS: NACL 0.45% 1000 ML 1,000 ML IV SCH ×4 (01:00→18:15)
--- NOTE | 2018-10-20 03:18 | Consultation ---
REASON FOR CONSULTATION: Abdominal pain, rule out appendicitis. HISTORY OF PRESENT ILLNESS: The patient is a healthy 23-year-old white gentleman who was admitted through the Emergency Room with recent onset of abdominal muscle spasms and pain. The patient does state that he is feeling " Also, tolerating a diet without incident. No evidence of nausea or vomiting. Lab work, however, is consistent with rhabdomyolysis. The patient states that he had been working out extensively over the last few days in the heat when he began experiencing muscle cramps throughout his body. PAST MEDICAL HISTORY: Negative. PAST SURGICAL HISTORY: Negative. ALLERGIES: No known allergies. MEDICATIONS: No medications. FAMILY HISTORY: Negative. SOCIAL HISTORY: Quit smoking approximately 5 months ago and occasional ethanol intake. PHYSICAL EXAMINATION: GENERAL: At this time reveals the patient to be awake, alert, cooperative, in no acute distress. As mentioned previously, he states he is feeling better. VITAL SIGNS: Temperature is 98, blood pressure 108/55, pulse is 76, and respirations 16. ABDOMEN: Examination of the abdomen reveals him to be a muscular but there is no real tenderness, rebound or guarding that can be elicited. Bowel sounds are present. No right lower quadrant tenderness is noted. LABORATORY DATA: Lab work at present includes a CBC, which shows a white count of 11.3, H and H is 19.2 and 55.3. Electrolytes are essentially within normal limits. Potassium is 4.1. On admission, BUN was 36 and creatinine was 4.9. Currently, BUN is 17 and creatinine is back down to 1.2. The total creatine kinase was very elevated at 3417, and currently, it is higher at 4703. A CT scan of the abdomen was performed, which I have reviewed with the radiologist. Appendicolith is noted at the tip, but there is no evidence of any inflammatory changes around the appendix itself. IMPRESSION: 1. At this time is that of a healthy 23-year-old young man, rule out rhabdomyolysis. 2. No surgical or radiographic signs of appendicitis at this time. The patient is surgically stable at present. RECOMMENDATIONS: I would recommend to continue his p.o. diet and continue treating his rhabdomyolysis. Possible Nephrology evaluation. I will follow p.r.n. I thank you very much for consultation. JOB# [id number] FP/NTS
[2018-10-20] MEDS: ZOSYN/NS 2.25 GM/50ML 2.25 GM/50 ML BAG IV SCH (06:03)
[2018-10-20 06:25] LABS: Creatinine,Urine 55.7 mg/dL (0.1-20.0)
[2018-10-20 06:26] LABS: Amphetamine Screen,Urine PRESUMPTIVE NEGATIVE; Benzodiazepines Screen,Urine PRESUMPTIVE NEGATIVE; Cocaine Screen,Urine PRESUMPTIVE NEGATIVE; Methadone Screen,Urine PRESUMPTIVE NEGATIVE; Opiate Screen,Urine PRESUMPTIVE NEGATIVE
[2018-10-20 06:46] LABS: Cannabinoid Screen,Urine PRESUMPTIVE POSITIVE
[2018-10-20 07:51] LABS: Alanine Aminotransferase 42 units/L (7-56); Albumin 3.5 g/dL (3.9-5); BUN/Creatinine Ratio 11; Blood Urea Nitrogen 9 mg/dL (9-20); Calcium 8.5 mg/dL (8.4-10.2); Hemolysis Index 1
[2018-10-20] MEDS: SODIUM CHLORIDE FLUSH SYRINGE 10 ML IV SCH ×2 (11:19→22:21)
[2018-10-20] MEDS: ZOSYN/NS 4.5GM/100ML 4.5 GM/100 ML VIAL IV SCH ×2 (16:41→22:20)
--- NOTE | 2018-10-20 17:06 | Progress Note ---
Assessment and Plan - Patient Problems (1) Acute kidney injury Current Visit: Yes Status: Acute Plan to address problem: most likely pre-renal azotemia in the setting of severe dehydration. Mild Rhabdomyolysis may contribute to TANJA. Renal function normalized with IVF. avoid nephrotoxins, NSAIDs, IV contrast. Will monitor lytes/renal parameters closely and make further recommendations. If CPK starts to trend down pt can be discharged from renal stand point. (2) Rhabdomyolysis Current Visit: Yes Status: Acute Plan to address problem: mild rhabdo, expect to improve with IV NS (3) Hypercalcemia Current Visit: Yes Status: Acute Plan to address problem: likely secondary to severe dehydration. normalized with IV hydration Subjective Date of service: 10/20/18 Principal diagnosis: TANJA Interval history: Pt awake alert, in NAD, feeling much better on IVF Objective - Vital Signs Vital signs: Vital Signs - 12hr 10/20/18 10/20/18 10/20/18 05:22 10:00 11:36 Temperature 97.7 F Pulse Rate 63 54 L Respiratory 16 20 Rate Blood Pressure 113/51 O2 Sat by Pulse 100 98 Oximetry 10/20/18 11:38 Temperature 98.1 F Pulse Rate Respiratory 19 Rate Blood Pressure 124/66 O2 Sat by Pulse Oximetry - General Appearance General appearance: well-developed, well-nourished, appears stated age EENT: ATNC, PERRL, mucous membranes moist Neck: no JVD Respiratory: Present: Clear to Ascultation Cardiology: regular, S1S2 Gastrointestinal: normoactive bowel sounds Integumentary: no rash, other (no edema ) Neurologic: no focal deficit, alert and oriented x3, strength 5/5, CN 3-12 intact Psychiatric: mood/affect appropriate, cooperative - Lab 10/18/18 20:56 10/20/18 06:41 Most recent lab results Calcium 8.5 mg/dL (8.4-10.2) 10/20/18 06:41 55.7 mg/dL (0.1-20.0) H 10/20/18 06:00 57 mmol/L 10/20/18 06:00 6 mg/dL (5-11.8) 10/20/18 06:00 Medications & Allergies - Medications Allergies/Adverse Reactions: Allergies No Known Allergies Allergy (Unverified 10/18/18 20:32) Active Medications: Generic Name Dose Route Start Last Admin Trade Name Ronnieq PRN Reason Stop Dose Admin Acetaminophen 650 mg 10/19/18 04:06 Tylenol PO Q4H PRN Pain MILD(1-3)/Fever >100.5/LIU Sodium Chloride 1,000 mls @ 250 mls/hr 10/19/18 05:00 10/20/18 11:19 Nacl 0.45% 1000 Ml IV 250 mls/hr DIRECT FÁTIMA Administration Piperacillin Sod/Tazobactam Sod 4.5 gm in 100 mls @ 200 mls/hr 10/20/18 14:00 10/20/18 16:41 Zosyn/Ns 4.5gm/100ml IV 200 mls/hr Q8HR FÁTIMA Administration Morphine Sulfate 2 mg 10/19/18 04:06 Morphine IV Q4H PRN Pain, Moderate (4-6) Ondansetron HCl 4 mg 10/19/18 04:06 Zofran IV Q8H PRN Nausea And Vomiting Oxycodone/Acetaminophen 1 tab 10/19/18 04:06 Percocet 5/325 PO Q6H PRN Pain, Moderate (4-6) Sodium Chloride 10 ml 10/19/18 10:00 10/20/18 11:19 Sodium Chloride Flush Syringe 10 Ml IV 10 ml BID FÁTIMA Administration Sodium Chloride 10 ml 10/19/18 04:06 Sodium Chloride Flush Syringe 10 Ml IV PRN PRN LINE FLUSH
--- NOTE | 2018-10-20 19:13 | Progress Note ---
Assessment and Plan Assessment and plan: --Acute appendicitis; on CT Surgery evaluated the patient, no acute appendicitis Appendicitis ruled out --Acute kidney injury; vasomotor nephropathy; resolved IV fluids, closely monitor renal function, avoid nephrotoxins Nephrology following --Rhabdomyolysis; probably secondary to strenuous physical activity CK levels Trending down CK today 4032, vigorous IV hydration Input and output monitoring --Transaminitis; no history of liver disease, probably alcohol related Transaminases trending down --Possible UTI; on UA Empiric antibiotics, follow cultures, plenty of fluids --Ongoing tobacco use; smoking cessation counseling Nicotine patch as needed --Recreational drug use; patient advised to quit marijuana --DVT prophylaxis; SCD Lovenox Disposition; follow CK levels, if less than 2000 Patient may be discharged home Plan of care reviewed with the patient and the mother at the bedside History Interval history: Patient seen and examined medical records reviewed No new Events reported by the nursing, patient has no new complaints Patient feels better renal function back to normal range Alert awake oriented 3 Vital signs noted Hospitalist Physical - Constitutional Vitals: Temp Pulse Resp BP Pulse Ox 98.1 F 54 L 19 124/66 98 10/20/18 11:38 10/20/18 11:36 10/20/18 11:38 10/20/18 11:38 10/20/18 11:36 General appearance: Present: no acute distress, well-nourished - EENT Eyes: Present: PERRL, EOM intact - Neck Neck: Present: supple, normal ROM - Respiratory Respiratory effort: normal Respiratory: bilateral: diminished, negative: rales, rhonchi, wheezing - Cardiovascular Rhythm: regular Heart Sounds: Present: S1 & S2 - Extremities Extremities: no ischemia, No edema - Abdominal General gastrointestinal: soft, non-tender, non-distended, normal bowel sounds - Integumentary Integumentary: Present: clear, warm - Psychiatric Psychiatric: appropriate mood/affect, cooperative - Neurologic Neurologic: CNII-XII intact, moves all extremities Results - Labs CBC & Chem 7: 10/18/18 20:56 10/20/18 06:41 Labs: Laboratory Last Values WBC 11.3 K/mm3 (4.5-11.0) H 10/18/18 20:56 RBC 5.70 M/mm3 (3.65-5.03) H 10/18/18 20:56 Hgb 19.2 gm/dl (11.8-15.2) H 10/18/18 20:56 Hct 55.3 % (35.5-45.6) H 10/18/18 20:56 MCV 97 fl (84-94) H 10/18/18 20:56 MCH 34 pg (28-32) H 10/18/18 20:56 MCHC 35 % (32-34) H 10/18/18 20:56 RDW 13.4 % (13.2-15.2) 10/18/18 20:56 Plt Count 300 K/mm3 (140-440) 10/18/18 20:56 Add Manual Diff Complete 10/18/18 20:56 Total Counted 100 10/18/18 20:56 Seg Neuts % (Manual) 84.0 % (40.0-70.0) H 10/18/18 20:56 0 % 10/18/18 20:56 9.0 % (13.4-35.0) L 10/18/18 20:56 Reactive Lymphs % (Man) 0 % 10/18/18 20:56 7.0 % (0.0-7.3) 10/18/18 20:56 0 % (0.0-4.3) 10/18/18 20:56 0 % (0.0-1.8) 10/18/18 20:56 0 % 10/18/18 20:56 0 % 10/18/18 20:56 0 % 10/18/18 20:56 0 % 10/18/18 20:56 Nucleated RBC % Not Reportable 10/18/18 20:56 Seg Neutrophils # Man 9.5 K/mm3 (1.8-7.7) H 10/18/18 20:56 Band Neutrophils # 0.0 K/mm3 10/18/18 20:56 1.0 K/mm3 (1.2-5.4) L 10/18/18 20:56 Abs React Lymphs (Man) 0.0 K/mm3 10/18/18 20:56 0.8 K/mm3 (0.0-0.8) 10/18/18 20:56 0.0 K/mm3 (0.0-0.4) 10/18/18 20:56 0.0 K/mm3 (0.0-0.1) 10/18/18 20:56 0.0 K/mm3 10/18/18 20:56 0.0 K/mm3 10/18/18 20:56 0.0 K/mm3 10/18/18 20:56 Blast Cells # 0.0 K/mm3 10/18/18 20:56 WBC Morphology Not Reportable 10/18/18 20:56 Hypersegmented Neuts Not Reportable 10/18/18 20:56 Hyposegmented Neuts Not Reportable 10/18/18 20:56 Hypogranular Neuts Not Reportable 10/18/18 20:56 Not Reportable 10/18/18 20:56 Not Reportable 10/18/18 20:56 Not Reportable 10/18/18 20:56 Not Reportable 10/18/18 20:56 Not Reportable 10/18/18 20:56 Not Reportable 10/18/18 20:56 Not Reportable 10/18/18 20:56 Not Reportable 10/18/18 20:56 Plt Clumps, EDTA Not Reportable 10/18/18 20:56 Not Reportable 10/18/18 20:56 Not Reportable 10/18/18 20:56 Not Reportable 10/18/18 20:56 Plt Morphology Comment Not Reportable 10/18/18 20:56 RBC Morphology Normal 10/18/18 20:56 Dimorphic RBCs Not Reportable 10/18/18 20:56 Not Reportable 10/18/18 20:56 Not Reportable 10/18/18 20:56 Not Reportable 10/18/18 20:56 Not Reportable 10/18/18 20:56 Not Reportable 10/18/18 20:56 Not Reportable 10/18/18 20:56 Not Reportable 10/18/18 20:56 Not Reportable 10/18/18 20:56 Not Reportable 10/18/18 20:56 Not Reportable 10/18/18 20:56 Not Reportable 10/18/18 20:56 Not Reportable 10/18/18 20:56 Not Reportable 10/18/18 20:56 Not Reportable 10/18/18 20:56 Not Reportable 10/18/18 20:56 Not Reportable 10/18/18 20:56 Not Reportable 10/18/18 20:56 Not Reportable 10/18/18 20:56 Not Reportable 10/18/18 20:56 Acanthocytes (Spur) Not Reportable 10/18/18 20:56 Rouleaux Not Reportable 10/18/18 20:56 Not Reportable 10/18/18 20:56 Not Reportable 10/18/18 20:56 Not Reportable 10/18/18 20:56 Not Reportable 10/18/18 20:56 Hem Pathologist Commnt No 10/18/18 20:56 Sodium 139 mmol/L (137-145) 10/20/18 06:41 Potassium 3.9 mmol/L (3.6-5.0) 10/20/18 06:41 Chloride 105.3 mmol/L (98-107) 10/20/18 06:41 Carbon Dioxide 26 mmol/L (22-30) 10/20/18 06:41 12 mmol/L 10/20/18 06:41 BUN 9 mg/dL (9-20) 10/20/18 06:41 0.8 mg/dL (0.8-1.5) 10/20/18 06:41 Estimated GFR > 60 ml/min 10/20/18 06:41 11 % 10/20/18 06:41 Glucose 83 mg/dL (75-100) 10/20/18 06:41 Calcium 8.5 mg/dL (8.4-10.2) 10/20/18 06:41 0.80 mg/dL (0.1-1.2) 10/20/18 06:41 AST 83 units/L (5-40) H 10/20/18 06:41 ALT 42 units/L (7-56) 10/20/18 06:41 40 units/L (35-129) 10/20/18 06:41 4032 units/L (55-170) H 10/20/18 06:41 < 0.010 ng/mL (0.00-0.029) 10/18/18 23:04 6.3 g/dL (6.3-8.2) 10/20/18 06:41 3.5 g/dL (3.9-5) L 10/20/18 06:41 1.3 % 10/20/18 06:41 43 units/L (13-60) 10/18/18 20:56 PTH Intact 50.19 pg/mL (15-65) 10/19/18 09:49 Yellow (Yellow) 10/19/18 01:58 Cloudy (Clear) 10/19/18 01:58 5.0 (5.0-7.0) 10/19/18 01:58 Ur Specific [place] 1.017 (1.003-1.030) 10/19/18 01:58 30 mg/dl mg/dL (Negative) 10/19/18 01:58 Neg mg/dL (Negative) 10/19/18 01:58 20 mg/dL (Negative) 10/19/18 01:58 Mod (Negative) 10/19/18 01:58 Neg (Negative) 10/19/18 01:58 Neg (Negative) 10/19/18 01:58 < 2.0 mg/dL (<2.0) 10/19/18 01:58 Ur Leukocyte Esterase Neg (Negative) 10/19/18 01:58 10.0 /HPF (0.0-6.0) H 10/19/18 01:58 8.0 /HPF (0.0-6.0) 10/19/18 01:58 U Epithel Cells (Auto) 1.0 /HPF (0-13.0) 10/19/18 01:58 2+ /HPF 10/19/18 01:58 55.7 mg/dL (0.1-20.0) H 10/20/18 06:00 57 mmol/L 10/20/18 06:00 6 mg/dL (5-11.8) 10/20/18 06:00 Presumptive negative 10/20/18 06:00 Presumptive negative 10/20/18 06:00 Ur Barbiturates Screen Presumptive negative 10/20/18 06:00 Ur Phencyclidine Scrn Presumptive negative 10/20/18 06:00 Ur Amphetamines Screen Presumptive negative 10/20/18 06:00 U Benzodiazepines Scrn Presumptive negative 10/20/18 06:00 Presumptive negative 10/20/18 06:00 U Marijuana (THC) Screen Presumptive positive 10/20/18 06:00 Disclamer 10/20/18 06:00 Active Medications - Current Medications Current Medications: Generic Name Dose Route Start Last Admin Trade Name Freq PRN Reason Stop Dose Admin Acetaminophen 650 mg 10/19/18 04:06 Tylenol PO Q4H PRN Pain MILD(1-3)/Fever >100.5/LIU Sodium Chloride 1,000 mls @ 250 mls/hr 10/19/18 05:00 10/20/18 18:15 Nacl 0.45% 1000 Ml IV 250 mls/hr DIRECT FÁTIMA Administration Piperacillin Sod/Tazobactam Sod 4.5 gm in 100 mls @ 200 mls/hr 10/20/18 14:00 10/20/18 16:41 Zosyn/Ns 4.5gm/100ml IV 200 mls/hr Q8HR FÁTIMA Administration Morphine Sulfate 2 mg 10/19/18 04:06 Morphine IV Q4H PRN Pain, Moderate (4-6) Ondansetron HCl 4 mg 10/19/18 04:06 Zofran IV Q8H PRN Nausea And Vomiting Oxycodone/Acetaminophen 1 tab 10/19/18 04:06 Percocet 5/325 PO Q6H PRN Pain, Moderate (4-6) Sodium Chloride 10 ml 10/19/18 10:00 10/20/18 11:19 Sodium Chloride Flush Syringe 10 Ml IV 10 ml BID FÁTIMA Administration Sodium Chloride 10 ml 10/19/18 04:06 Sodium Chloride Flush Syringe 10 Ml IV PRN PRN LINE FLUSH
[2018-10-21] MEDS: ZOSYN/NS 4.5GM/100ML 4.5 GM/100 ML VIAL IV SCH ×2 (06:05→14:02)
[2018-10-21 06:28] VITALS: BP 113/65
[2018-10-21 07:13] LABS: Alanine Aminotransferase 41 units/L (7-56); Albumin 3.5 g/dL (3.9-5); BUN/Creatinine Ratio 8; Blood Urea Nitrogen 6 mg/dL (9-20); Calcium 8.8 mg/dL (8.4-10.2); Hemolysis Index 57
[2018-10-21] MEDS: SODIUM CHLORIDE FLUSH SYRINGE 10 ML IV SCH (10:20)
--- NOTE | 2018-10-21 12:59 | Discharge Summary ---
Providers - Providers Date of Admission: 10/19/18 04:06 Date of discharge: 10/21/18 Attending physician: NIELS SHI 10/19/18 04:06 Consult to Physician [CONS] Routine Comment: Consulting Provider: SILVESTRE ALVAREZ Physician Instructions: Reason For Exam: elisa 10/19/18 11:39 Consult to Physician [CONS] Routine Comment: Consulting Provider: NHUNG GARRETT Physician Instructions: Reason For Exam: ? acute appendicitis Primary care physician: BETTY MUNIZ Hospitalization Condition: Stable Hospital course: 23-year-old male patient with no significant past medical history was training and exercising vigorously and was admitted through emergency room with abdominal pain generalized body pain and muscle cramps, initial workup is consistent with rhabdomyolysis and acute kidney injury, transaminitis and questionable appendicitis on CT abdomen, evaluated by surgery no evidence of appendicitis, appendicitis ruled out, managed symptomatically with vigorous IV hydration, renal function improved Transaminases trending down has rhabdomyolysis with CK of >4000,on IV hydration Discharge diagnosis: --Acute appendicitis; on CT Surgery evaluated the patient, no acute appendicitis Appendicitis ruled out --Acute kidney injury; vasomotor nephropathy; resolved IV fluids, closely monitor renal function, avoid nephrotoxins Nephrology following --Rhabdomyolysis; probably secondary to strenuous physical activity CK levels Trending down CK today 4032, vigorous IV hydration Input and output monitoring --Transaminitis; no history of liver disease, probably alcohol related Transaminases trending down --Possible UTI; on UA Empiric antibiotics, follow cultures, plenty of fluids --Ongoing tobacco use; smoking cessation counseling Nicotine patch as needed --Recreational drug use; patient advised to quit marijuana --DVT prophylaxis; SCD Lovenox Disposition; follow CK levels, if less than 2000 Patient may be discharged home Plan of care reviewed with the patient and the mother at the bedside Hospitalist Physical General appearance: Present: no acute distress, well-nourished - EENT Eyes: Present: PERRL, EOM intact - Neck Neck: Present: supple, normal ROM - Respiratory Respiratory effort: normal Respiratory: bilateral: diminished, negative: rales, rhonchi, wheezing - Cardiovascular Rhythm: regular Heart Sounds: Present: S1 & S2 - Extremities Extremities: no ischemia, No edema - Abdominal General gastrointestinal: soft, non-tender, non-distended, normal bowel sounds - Integumentary Integumentary: Present: clear, warm - Psychiatric Psychiatric: appropriate mood/affect, cooperative - Neurologic Neurologic: CNII-XII intact, moves all extremities Disposition: DC-01 TO HOME OR SELFCARE Time spent for discharge: 34 minutes Core Measure Documentation - Palliative Care Palliative Care/ Comfort Measures: Not Applicable - Core Measures Any of the following diagnoses?: none Exam - Constitutional Vitals: Temp Pulse Resp BP Pulse Ox 97.9 F 49 L 16 113/65 97 10/21/18 05:33 10/21/18 05:33 10/21/18 05:33 10/21/18 05:33 10/21/18 05:33 Plan Activity: advance as tolerated Weight Bearing Status: Non-Weight Bearing Diet: regular Special Instructions: other (Keep yourself hydrated, no strenious exercise ) Follow up with: BETTY MUNIZ MD [Primary Care Provider] - 3-5 Days
--- NOTE | 2018-10-21 13:25 | Progress Note ---
Assessment and Plan - Patient Problems (1) Acute kidney injury Current Visit: Yes Status: Acute Plan to address problem: most likely pre-renal azotemia in the setting of severe dehydration. Mild Rhabdomyolysis may contribute to TANJA. Renal function normalized with IVF. avoid nephrotoxins, NSAIDs, IV contrast. Will monitor lytes/renal parameters closely and make further recommendations. stable for discharge from renal stand point (2) Rhabdomyolysis Current Visit: Yes Status: Acute Plan to address problem: mild rhabdo, expect to improve with IV NS (3) Hypercalcemia Current Visit: Yes Status: Acute Plan to address problem: likely secondary to severe dehydration. normalized with IV hydration Subjective Date of service: 10/21/18 Principal diagnosis: TANJA Interval history: Pt awake alert, in NAD, renal function normalized after IVF Objective - Vital Signs Vital signs: Vital Signs - 12hr 10/21/18 05:33 Temperature 97.9 F Pulse Rate 49 L Respiratory 16 Rate Blood Pressure 113/65 O2 Sat by Pulse 97 Oximetry - General Appearance General appearance: well-developed, well-nourished, appears stated age EENT: ATNC, PERRL, mucous membranes moist Neck: no JVD Respiratory: Present: Clear to Ascultation Cardiology: regular, S1S2 Gastrointestinal: normoactive bowel sounds Integumentary: no rash, other (no edema ) Neurologic: no focal deficit, alert and oriented x3, strength 5/5, CN 3-12 intact Psychiatric: mood/affect appropriate, cooperative - Lab 10/18/18 20:56 10/21/18 06:36 Most recent lab results Calcium 8.8 mg/dL (8.4-10.2) 10/21/18 06:36 55.7 mg/dL (0.1-20.0) H 10/20/18 06:00 57 mmol/L 10/20/18 06:00 6 mg/dL (5-11.8) 10/20/18 06:00 Medications & Allergies - Medications Allergies/Adverse Reactions: Allergies No Known Allergies Allergy (Unverified 10/18/18 20:32) Active Medications: Generic Name Dose Route Start Last Admin Trade Name Freq PRN Reason Stop Dose Admin Acetaminophen 650 mg 10/19/18 04:06 Tylenol PO Q4H PRN Pain MILD(1-3)/Fever >100.5/LIU Sodium Chloride 1,000 mls @ 150 mls/hr 10/19/18 05:00 10/20/18 18:15 Nacl 0.45% 1000 Ml IV 250 mls/hr DIRECT FÁTIMA Administration Piperacillin Sod/Tazobactam Sod 4.5 gm in 100 mls @ 200 mls/hr 10/20/18 14:00 10/21/18 06:05 Zosyn/Ns 4.5gm/100ml IV 200 mls/hr Q8HR FÁTIMA Administration Morphine Sulfate 2 mg 10/19/18 04:06 Morphine IV Q4H PRN Pain, Moderate (4-6) Ondansetron HCl 4 mg 10/19/18 04:06 Zofran IV Q8H PRN Nausea And Vomiting Oxycodone/Acetaminophen 1 tab 10/19/18 04:06 Percocet 5/325 PO Q6H PRN Pain, Moderate (4-6) Sodium Chloride 10 ml 10/19/18 10:00 10/20/18 22:21 Sodium Chloride Flush Syringe 10 Ml IV 10 ml BID FÁTIMA Administration Sodium Chloride 10 ml 10/19/18 04:06 Sodium Chloride Flush Syringe 10 Ml IV PRN PRN LINE FLUSH
== END 2018-10-21 16:45 | disposition home or self-care (01) | DRG 557 ==
LOC: ED 19:59 → 3A 10-19 04:06
PROVIDERS: ADMIT Internal Medicine; ATTEND Internal Medicine
DX: M62.82 Rhabdomyolysis (principal); N17.0 Acute kidney failure with tubular necrosis; E87.2 Acidosis; N39.0 Urinary tract infection, site not specified; F17.210 Nicotine dependence, cigarettes, uncomplicated; D75.1 Secondary polycythemia; E86.0 Dehydration; Z71.6 Tobacco abuse counseling; E83.52 Hypercalcemia
CPT/HCPCS: 36415; 71046; 74176; 80053; 80307; 81001; 82550; 82570; 83690; 83970; 84156; 84300; 84484; 85007; 85025; 87086; 93005; 93010; 99406; G0378; J2060; J2270; J2543; J7030; Q0162

== ENCOUNTER 2021-09-25 12:34 | Emergency (ER) | payer SELFPAY ==
[2021-09-25] MEDS ORDERED: FLUORESCEIN 1 MG STRIP OP ONE (12:41)
[2021-09-25] MEDS ORDERED: TETRACAINE 0.5% OPHTH SOLN 4ML OU ONE (12:42)
--- NOTE | 2021-09-25 13:54 | Emergency Department Report ---
ED Eye Problem HPI - General Chief complaint: Eye Problems Stated complaint: LT EYE INJURY Time Seen by Provider: 09/25/21 12:39 Source: patient Mode of arrival: Ambulatory Limitations: No Limitations - History of Present Illness Initial comments: This is a 26-year-old male nontoxic, well nourished in appearance, no acute signs of distress presents to the ED with c/o of left eye redness and pain that started today. Patient stated he accidentally poked himself with his finger. Denies any foreign body sensation or floaters. Patient denies any visual changes or decreased vision. Patient denies any fever, chills, nausea, vomiting, chest pain, breath, headache, stiff neck numbness or tingling. Patient denies any allergies. MD chief complaint: eye pain, eye injury -: This morning Onset Description: sudden Location: left eye Eye Symptoms: redness, pain Severity: mild Severity scale (0 -10): 8 If Pain, Quality: aching Consistency: constant Associated Symptoms: none. denies: headache, neck pain, nausea/vomiting, cough, rhinorrhea, fever, shortness of breath Treatments Prior to Arrival: none - Related Data Previous Rx's Medication Instructions Recorded Last Taken Type Polymyxin B Sulf/Trimethoprim 2 drops OS TID 7 Days #1 bottle 09/25/21 Unknown Rx [Polytrim Eye Drops] Allergies Allergy/AdvReac Type Severity Reaction Status Date / Time No Known Allergies Allergy Verified 09/25/21 12:41 ED Review of Systems ROS: Stated complaint: LT EYE INJURY Other details as noted in HPI Comment: All other systems reviewed and negative Constitutional: denies: chills, fever Eyes: eye pain. denies: eye discharge, vision change ENT: denies: ear pain, throat pain Respiratory: denies: cough, shortness of breath, wheezing Cardiovascular: denies: chest pain, palpitations Endocrine: no symptoms reported Gastrointestinal: denies: abdominal pain, nausea, diarrhea Genitourinary: denies: urgency, dysuria Musculoskeletal: denies: back pain, joint swelling, arthralgia Skin: denies: rash, lesions Neurological: denies: headache, weakness, paresthesias Psychiatric: denies: anxiety, depression Hematological/Lymphatic: denies: easy bleeding, easy bruising ED Past Medical Hx - Past Medical History Hx Congestive Heart Failure: No Hx Diabetes: No Hx Arthritis: No Hx Asthma: No Hx COPD: No Hx HIV: No - Social History Smoking Status: Current Every Day Smoker - Medications Home Medications: Home Medications Medication Instructions Recorded Confirmed Last Taken Type Polymyxin B Sulf/Trimethoprim 2 drops OS TID 7 Days #1 bottle 09/25/21 Unknown Rx [Polytrim Eye Drops] ED Physical Exam - General Limitations: No Limitations General appearance: alert, in no apparent distress - Head Head exam: Present: atraumatic, normocephalic - Eye Eye exam: Present: normal appearance, PERRL, EOMI. Absent: scleral icterus, conjunctival injection, nystagmus, periorbital swelling, periorbital tenderness - Expanded Eye Exam Expanded Eyelids: Normal Inspection: Left Pupils: Regular, Round: Left, Reactive: Left Sclera/Conjunctival: Normal Inspection: Left - Neck Neck exam: Present: normal inspection, full ROM. Absent: lymphadenopathy - Respiratory Respiratory exam: Absent: respiratory distress - Cardiovascular Cardiovascular Exam: Present: regular rate - Extremities Exam Extremities exam: Present: full ROM - Back Exam Back exam: Present: full ROM - Neurological Exam Neurological exam: Present: alert, oriented X3 - Psychiatric Psychiatric exam: Present: normal affect, normal mood - Skin Skin exam: Present: warm, dry, intact, normal color. Absent: rash - Other Other exam information: Under Garcia lamp, I used fluorescein and tetracaine to examine cornea for corneal abrasion or foreign body, negative foreign body noted upon exam but there is a small corneal abrasion to the left eye. ED Course Vital Signs 09/25/21 12:39 Temperature 97 F L Pulse Rate 73 Respiratory 18 Rate Blood Pressure 134/73 [Left] O2 Sat by Pulse 100 Oximetry - Reevaluation(s) Reevaluation #1: 09/25/21 13:53 Patient is speaking in full sentences with no signs of distress noted. ED Medical Decision Making - Medical Decision Making 26 male who presents with left corneal abrasion. Patient is stable and was examined by me. Patient will be discharged with Polytrim. Patient referred to see follow-up with a art gilder doctor in 3-5 days or if symptoms worsen and continue return to emergency room as soon as possible. At time of discharge, the patient does not seem toxic or ill in appearance. No acute signs of distress noted. Patient agrees to discharge treatment plan of care. No further questions noted by the patient. Critical care attestation.: If time is entered above; I have spent that time in minutes in the direct care of this critically ill patient, excluding procedure time. ED Disposition Clinical Impression: Left corneal abrasion Qualifiers: Encounter type: initial encounter Qualified Code(s): S05.02XA - Injury of conjunctiva and corneal abrasion without foreign body, left eye, initial encounter Disposition: HOME / SELF CARE / HOMELESS Is pt being admited?: No Does the pt Need Aspirin: No Condition: Stable Instructions: Corneal Abrasion Additional Instructions: Follow-up with a art gilder doctor in 3-5 days or if symptoms worsen and continue return to emergency room as soon as possible. Prescriptions: Polymyxin B Sulf/Trimethoprim [Polytrim Eye Drops] 2 drops OS TID 7 Days #1 bottle Referrals: PRIMARY CAREMD [Referring] - 3-5 Days SVETLANA DSOUZA MD [Staff Physician] - 3-5 Days Forms: Work/School Release Form(ED) Time of Disposition: 13:55
[2021-09-25 14:03] VITALS: BP 125/81
== END 2021-09-25 14:01 | disposition home or self-care (01) ==
LOC: ED 12:34
DX: S05.02XA Injury of conjunctiva and corneal abrasion without foreign body, left eye, initial encounter (principal); X58.XXXA Exposure to other specified factors, initial encounter; Y93.89 Activity, other specified; Y92.89 Other specified places as the place of occurrence of the external cause; Y99.8 Other external cause status
CPT/HCPCS: 99282; 99283

== ENCOUNTER 2021-10-15 16:39 | Emergency (ER) | payer SELFPAY | END 2021-10-16 02:28 | disposition left against medical advice (07) | LOC: ED 16:39 | DX: M54.2 Cervicalgia (principal); Z53.21 Procedure and treatment not carried out due to patient leaving prior to being seen by health care provider ==